=== PATIENT | male | born 1975 | race American Indian/Alaskan Native ===

== ENCOUNTER 2016-08-30 09:44 | Emergency (ER) | payer OTHER ==
[2016-08-30] MEDS ORDERED: PERCOCET 5/325 PO ONE (12:00)
[2016-08-30] MEDS ORDERED: FUL-GLO OP ONE (12:00)
[2016-08-30] MEDS ORDERED: TETRACAINE 0.5% OD ONE (12:00)
[2016-08-30] MEDS ORDERED: NACL 0.9% IR ONE (12:00)
[2016-08-30] MEDS ORDERED: XYLOCAINE 1% MPF 5 mL INFILTRATI ONE (12:00)
[2016-08-30 12:49] VITALS: BP 156/91
--- NOTE | 2016-08-30 13:47 | Emergency Department Report ---
Entered by HAWK ADAMS, acting as scribe for DILIP COPE PA. - General Chief Complaint: Wound/Laceration Stated Complaint: LAC/RIGHT EYE Time Seen by Provider: 08/30/16 10:13 Source: patient Mode of arrival: Ambulatory Limitations: No Limitations - History of Present Illness Initial Comments: 41 y/o male with no significant PMHx presents to the ED c/o a laceration to right eyelid that began this morning at 07:00. Patient states that he slipped and hit his face on the knob of a lamp, and subsequently received a laceration right upper eyelid.. Denies LOC. Rates associated right eyelid pain a 7/10 in severity. Associated symptoms include headache. 3 Out of 10, but he denies numbness and tingling. Denies any head injury. He denies any possibility of glass being present in laceration. UTD with tetanus. Denies any nausea / vomiting. Denies any dizziness. Patient says his right eye is watery and foreign body sensation. Denies any decrease in his vision. -: This morning Time: 07:00 Location: face (right eyelid) Place: home Patient Tetanus UTD: Yes Context: accidental, fall (fell and hit face on a lamp) Associated Symptoms: pain (right eyelid pain/Head). denies: loss of feeling/ numbness, suspect foreign body present, unable to move injured part, weakness followed by dizziness, nausea/vomiting, fever Treatments Prior to Arrival: other (none.) - Related Data Previous Rx's Medication Instructions Recorded Last Taken Type Acetaminophen/Codeine [Tylenol 1 tab PO Q6H PRN #12 tab 08/30/16 Unknown Rx /Codeine # 3 tab] Cephalexin [Keflex] 500 mg PO Q8HR #15 cap 08/30/16 Unknown Rx Gentamicin 0.3% Ophth Soln 2 drops OD Q8H #1 bottle 08/30/16 Unknown Rx Allergies Allergy/AdvReac Type Severity Reaction Status Date / Time No Known Allergies Allergy Unverified 08/30/16 10:03 ED Review of Systems Comment: All other systems reviewed and negative Constitutional: no symptoms reported. denies: chills, diaphoresis, fever, weakness, other (tingling) Eyes: eye pain (pain to her right upper eyelid and foreign body sensation to right eye), eye discharge (watery right eye), other (right eyelid pain). denies : vision change ENT: denies: throat pain Respiratory: no symptoms reported. denies: cough, shortness of breath, SOB with exertion, SOB at rest, stridor Cardiovascular: denies: chest pain, palpitations, edema, syncope Endocrine: no symptoms reported Gastrointestinal: denies: abdominal pain, nausea, vomiting Musculoskeletal: denies: back pain, joint swelling, arthralgia, myalgia Skin: other (laceration to right eyelid). denies: rash Neurological: headache. denies: weakness, numbness, paresthesias, confusion, abnormal gait, vertigo ED Past Medical Hx - Past Medical History Previous Medical History?: No - Surgical History Past Surgical History?: Yes Additional Surgical History: KNEE SURGERY. ARM SURGERY - Family History Family history: hypertension - Social History Smoking Status: Never Smoker Substance Use Type: None - Medications Home Medications: Home Medications Medication Instructions Recorded Confirmed Last Taken Type Acetaminophen/Codeine [Tylenol 1 tab PO Q6H PRN #12 tab 08/30/16 Unknown Rx /Codeine # 3 tab] Cephalexin [Keflex] 500 mg PO Q8HR #15 cap 08/30/16 Unknown Rx Gentamicin 0.3% Ophth Soln 2 drops OD Q8H #1 bottle 08/30/16 Unknown Rx ED Physical Exam - General Limitations: No Limitations General appearance: alert, in no apparent distress - Head Head exam: Present: atraumatic, normocephalic, normal inspection - Expanded Head Exam Expanded Head exam: Absent: laceration, abrasion, contusion, hematoma, racoon eyes, stevens's sign, general tenderness, tenderness of temporal artery, CSF rhinorrhea , CSF otorrhea - Eye Eye exam: Present: PERRL, EOMI, other (right eye watery with minimal erythema, left laceration on outer canthus with minimal subcutaneous hemorrhage on right eyelid) Pupils: Present: normal accommodation - Expanded Eye Exam Expanded Eyelids: Laceration: Right (laceration with bleeding to upper right eyelid), Swelling: Right (upper right eyelid) Pupils: Regular, Round: Bilateral, Reactive: Bilateral Sclera/Conjunctival: Normal Inspection: Right (minimal watery right eye erythema .) Anterior chamber: Normal Inspection: Bilateral Posterior chamber: Normal Inspection: Bilateral Visual acuity (R) = 20/: 25 Visual acuity (L) = 20/: 20 With correction: No - ENT ENT exam: Present: normal exam, normal orophraynx, mucous membranes moist - Neck Neck exam: Present: normal inspection, full ROM. Absent: tenderness, meningismus, lymphadenopathy - Respiratory Respiratory exam: Present: normal lung sounds bilaterally. Absent: respiratory distress, wheezes, rales, rhonchi, stridor, chest wall tenderness - Cardiovascular Cardiovascular Exam: Present: regular rate (S1/S2), normal rhythm, normal heart sounds - GI/Abdominal GI/Abdominal exam: Present: soft, normal bowel sounds. Absent: tenderness - Extremities Exam Extremities exam: Present: normal inspection, full ROM, normal capillary refill. Absent: tenderness, pedal edema - Back Exam Back exam: Present: normal inspection, full ROM. Absent: tenderness, CVA tenderness (R), CVA tenderness (L), muscle spasm, paraspinal tenderness, vertebral tenderness, rash noted - Neurological Exam Neurological exam: Present: alert, oriented X3, CN II-XII intact, normal gait, reflexes normal. Absent: motor sensory deficit - Expanded Neurological Exam Expanded Neurological exam: Absent: innattentive, memory loss-remote event, memory loss- recent event, ataxia, receptive aphasia, expressive aphasia, total aphasia, tremor, protecting the airway Patient oriented to: Present: person, place, time Speech: Present: fluid speech (normal tone of speech) Cranial nerves: EOM's Intact: Normal, Gag Reflex: Normal, Tongue Deviation: Normal, Nystagmus: Normal, Facial Sensation: Normal, Facial Palsy with Forehead Movement: Normal, Facial Palsy without Forehead Movement: Normal Cerebellar function: Romberg: Normal Upper motor neuron: Pronator Drift: Normal Sensory exam: Upper Extremity Light Touch: Normal, Upper Extremity Temperature: Normal, UE 2 Point Discrimination: Normal, Lower Extremity Light Touch: Normal, Lower Extremity Temperature: Normal, LE 2 Point Discrimination: Normal Motor strength exam: RUE: 5, LUE: 5, RLE: 5, LLE: 5 DTR: bicep (R): 2+, bicep (L): 2+, tricep (R): 2+, tricep (L): 2+, knee (R): 2+ , knee (L): 2+, ankle (R): 2+, ankle (L): 2+ Best Eye Response ([place]): (4) open spontaneously Best Motor Response ([place]): (6) obeys commands Best Verbal Response ([place]): (5) oriented Sandra Total: 15 - Psychiatric Psychiatric exam: Present: normal affect, normal mood - Skin Skin exam: Present: warm, dry, normal color, other (rt eyelid laceration on outer with minimal subcutaneous hemorrhage on right eyelid). Absent: intact, rash - Expanded Skin Exam Expanded Type of lesion: Present: laceration Distribution of rash: face (right upper eyelid) Description of rash: Present: size (0.5 cm), tenderness, swelling. Absent: erythematous, discharge ED Course Vital Signs 08/30/16 08/30/16 08/30/16 10:03 12:35 12:49 Temperature 98.2 F Pulse Rate 79 76 Respiratory 18 16 16 Rate Blood Pressure 159/110 Blood Pressure 156/91 [Left] O2 Sat by Pulse 98 100 Oximetry - Procedure Description Procedures done: Right eye procedure: Patient with right eye injury. Right eyes visualized under Raymond lamp, prior to Raymond lamp 2 drops of tetracaine instilled in right eye, fluorescein staining with uptake. Noted corneal abrasion to right cornea. No foreign body noted. Patient tetanus shot is up-to -date. Tolerated procedure well. Postprocedure, right eye flushed with sterile water. - Laceration /Wound Repair Right Eye Wound Location: face (right upper eyelid) Wound Length (cm): 0 (0.5 cm) Wound's Depth, Shape: superficial, irregular, stellate Wound Explored: no foreign body removed Irrigated w/ Saline (ccs): 250 Betadine Prep?: Yes Anesthesia: 1% Lidocaine Volume Anesthetic (ccs): 1 Wound Debrided: moderate Wound Repaired With: sutures Suture Size/Type: 6:0 (Vicryl) Number of Sutures: 7 Layer Closure?: No Sterile Dressing Applied?: Yes ED Medical Decision Making - Medical Decision Making ED course: See procedure note for details on procedures. status post fall with laceration to right eyelid. He was given Percocet 5/325 mg 2 tablets emergency room for pain. Tetanus shot is up-to-date. He complains of a headache but based on [place] and head CT will he does not need CT scan. is neurologically intact. I explained to patient his diagnosis and treatment plan. Discussed with him he needs to follow up with his primary care physician and also to follow up with learning consultant in 2 days. Patient discharged home with his family with prescription for Tylenol 3, Keflex and gentamicin eyedrop. ED Disposition Clinical Impression: Elevated blood-pressure reading, without diagnosis of hypertension Right corneal abrasion Qualifiers: Encounter type: initial encounter Qualified Code(s): S05.01XA - Injury of conjunctiva and corneal abrasion without foreign body, right eye, initial encounter Laceration of eyelid of right eye without foreign body Qualifiers: Encounter type: initial encounter Qualified Code(s): S01.111A - Laceration without foreign body of right eyelid and periocular area, initial encounter Accidental fall Qualifiers: Encounter type: initial encounter Qualified Code(s): W19.XXXA - Unspecified fall, initial encounter Headache Qualifiers: Headache type: post-traumatic Headache chronicity pattern: acute headache Intractability: not intractable Qualified Code(s): G44.319 - Acute post- traumatic headache, not intractable Disposition: DISCHARGED TO HOME OR SELFCARE Is pt being admited?: No Does the pt Need Aspirin: No Condition: Stable Instructions: Heart Healthy Diet (ED), Low Sodium Diet (ED), Hypertension (ED) , Corneal Abrasion (ED), Fall Prevention (ED), Laceration (ED), Absorbable Suture Care (ED) Additional Instructions: Please wear sunglasses when outside as the sun cause you to have sensitivity in the right eye. Please take antibiotic as prescribed. Do not drive or operate heavy machinery while taking Tylenol No. 3 as this medication will cause drowsiness Follow up learning consultant and primary care doctor as discussed Take eyedrops as discussed blood pressure was elevated in emergency room today and this could be from injury that he sustained with pain. He is to pyelography blood pressure next few days and take a primary care visit for evaluation. Prescriptions: Acetaminophen/Codeine [Tylenol /Codeine # 3 tab] 1 tab PO Q6H PRN #12 tab PRN Reason: Cough Cephalexin [Keflex] 500 mg PO Q8HR #15 cap Gentamicin 0.3% Ophth Soln 2 drops OD Q8H #1 bottle Referrals: PRIMARY CARE, [Primary Care Provider] - 2-3 Days FATIMAH COOK MD [Staff Physician] - 05/22/17 Forms: Accompanied Note, Work/School Release Form(ED) This documentation as recorded by the danielibANGIE arreguin JASMINE,accurately reflects the service I personally performed and the decisions made by ,DILIP COPE PA.
== END 2016-08-30 14:08 | disposition home or self-care (01) ==
LOC: ED 09:44
DX: S01.111A Laceration without foreign body of right eyelid and periocular area, initial encounter (principal); S05.01XA Injury of conjunctiva and corneal abrasion without foreign body, right eye, initial encounter; G44.319 Acute post-traumatic headache, not intractable; R03.0 Elevated blood-pressure reading, without diagnosis of hypertension; W01.0XXA Fall on same level from slipping, tripping and stumbling without subsequent striking against object, initial encounter; Y93.9 Activity, unspecified; Y92.9 Unspecified place or not applicable; Y99.9 Unspecified external cause status
CPT/HCPCS: 99283